=== PATIENT | male | born 1950 | race Caucasian/White ===

== ENCOUNTER 2016-07-21 13:13 | Outpatient (CLI) | payer MEDICARE, BC | END 2016-07-21 13:14 | disposition home or self-care (01) | DX: I25.10 Atherosclerotic heart disease of native coronary artery without angina pectoris (principal); E78.5 Hyperlipidemia, unspecified; Z12.5 Encounter for screening for malignant neoplasm of prostate; G47.33 Obstructive sleep apnea (adult) (pediatric) | CPT/HCPCS: 36415; 80053; 80061; 85025; G0103 ==

== ENCOUNTER 2016-08-12 08:15 | Outpatient (CLI) | payer MEDICARE, BC | END 2016-08-12 08:16 | disposition home or self-care (01) | DX: R94.5 Abnormal results of liver function studies (principal) ==

== ENCOUNTER 2016-08-24 07:31 | Outpatient (CLI) | payer MEDICARE, BC | END 2016-08-24 07:32 | disposition home or self-care (01) | DX: R94.5 Abnormal results of liver function studies (principal); Z79.899 Other long term (current) drug therapy ==

== ENCOUNTER 2016-10-28 08:44 | Outpatient (CLI) | payer MEDICARE, OTHER | END 2016-10-28 08:45 | disposition home or self-care (01) | LOC: SC 08:44 | PROVIDERS: ATTEND Nurse Practitioner Family | DX: G47.33 Obstructive sleep apnea (adult) (pediatric) (principal) | CPT/HCPCS: 99214; G0463; 99212 ==

== ENCOUNTER 2017-01-04 08:00 | Outpatient (CLI) | payer MEDICARE, OTHER ==
[2017-01-04 13:38] LABS: HEMOGLOBIN A1C 0.61 g/dL
[2017-01-04 13:40] LABS: ALBUMIN/GLOBULIN RATIO 1.6 (1.0-2.2); BILIRUBIN,TOTAL 1.1 mg/dL (0.2-1.0); BUN - BLOOD UREA NITROGEN 23 mg/dL (6-20); CALCIUM 9.6 mg/dL (8.5-10.3); CARBON DIOXIDE - CO2 29 mmol/L (21-32); CHLORIDE 100 mmol/L (101-111); CHOL/HDL RATIO 3.1 (<5.0); CHOLESTEROL 146 mg/dL; CREATININE 1.1 mg/dL (0.6-1.2); GFR - MDRD 67 (>89); GLUCOSE 120 mg/dL (70-100); HDL CHOLESTEROL 47 mg/dL; LDL/HDL RATIO 1.7 (<3.6); POTASSIUM 4.2 mmol/L (3.5-5.0); SODIUM 138 mmol/L (135-145); TOTAL PROTEIN 7.8 g/dL (6.7-8.2); TRIGLYCERIDES 85 mg/dL; VLDL CHOLESTEROL 17 mg/dL
== END 2017-01-04 08:01 | disposition home or self-care (01) ==
LOC: LAB.WCP 08:00
PROVIDERS: ATTEND Family Medicine
DX: R94.5 Abnormal results of liver function studies (principal); Z79.899 Other long term (current) drug therapy; E78.5 Hyperlipidemia, unspecified; I25.10 Atherosclerotic heart disease of native coronary artery without angina pectoris
CPT/HCPCS: 36415; 80053; 80061; 83036; 84443

== ENCOUNTER 2017-01-13 10:05 | Outpatient (CLI) | payer MEDICARE, OTHER | END 2017-01-13 10:06 | disposition home or self-care (01) | LOC: DI 10:05 | PROVIDERS: ATTEND Internal Medicine Cardiovascular Disease | DX: I25.10 Atherosclerotic heart disease of native coronary artery without angina pectoris (principal); Z95.1 Presence of aortocoronary bypass graft; I25.2 Old myocardial infarction | CPT/HCPCS: 93306 ==

== ENCOUNTER 2017-01-27 09:37 | Outpatient (CLI) | payer MEDICARE, OTHER ==
--- NOTE | 2017-01-27 14:31 | CARDIAC PROCEDURE NOTE ---
DATE OF SERVICE: 01/27/2017 00:00:00 PRIMARY CARE PHYSICIAN: Feng Blanco MD CUSTOMER RELATIONS ADVISOR: Praveen Chapin MD PROCEDURE: Treadmill myocardial perfusion scan. PROCEDURE SYMPTOMS: No symptoms. CARDIAC RISK FACTORS: Include known CAD, age and hyperlipidemia. PREVIOUS CARDIAC PROCEDURES: Include CABG in 2007. CLINICAL HISTORY: A 66-year-old male with known coronary artery disease. INITIAL RESTING VITAL SIGNS: Blood pressure 110/82, heart rate 64, height 70 inches, weight 182 pounds, BMI 26.1. PROCEDURE AND FINDINGS: The patient's identity and date verified. Consent signed. Safety stop. The patient performed treadmill exercise using a [place] protocol completing 10 minutes 36 seconds and completing an estimated workload of 12.9 metabolic equivalents. Maximal blood pressure was 198/90 with a heart rate of 170 beats per minute or 110% of maximum predicted heart rate for age. The blood pressure response to exercise was within normal limits. At heart rate greater than 140, Cardiolite was injected, and the patient exercised more than 60 seconds more. The resting ECG demonstrated normal sinus rhythm with right bundle branch abnormality. Maximum ST segment depression was less than 0.5 mm and upsloping. There was a rare PVC. The patient had good 1 minute heart rate recovery. FINAL IMPRESSION 1. Negative stress electrocardiogram for ischemia by electrocardiographic criteria. 2. Negative stress test clinically for angina. 3. Rare premature ventricular contraction. 4. [place] Heart Association functional class I. 5. Await myocardial perfusion scan results. JOB #: [id number] [facility] JOB #:[id number] [facility]
[2017-01-27 16:25] VITALS: BP 110/82
--- NOTE | 2017-01-27 17:18 | Nuclear Medicine Report ---
EXAM: MYOCARDIAL PERFUSION STRESS AND REST EXAM DATE: 01/27/2017 10:36 AM. CLINICAL HISTORY: Coronary artery disease. Evaluate for ischemia. COMPARISON: None. TECHNIQUE: Patient given 10.4 mCi technetium 99m sestamibi IV for the rest portion of the study. Non- gated cardiac SPECT scintigraphy performed with multiplanar reformats. Next, patient exercised on a treadmill protocol for 10 minutes 36 seconds. Near peak exercise, patien t given 38.4 mCi technetium 99m sestamibi IV. Cardiac gated SPECT scintigraphy performed with multipl vincent reformats, wall motion analysis, and left ventricular ejection fraction estimation. FINDINGS: There is minimal decreased activity in the apex on both stress and rest, likely apical thinning. No other focus of fixed or reversible perfusion defects are seen. Wall motion appears uniform. Left ventricular ejection fraction estimated at 64%. IMPRESSION: 1. No significant evidence of inducible ischemia or infarct. 2. Left ventricular ejection fraction estimated at 64%. [facility] Referring Provider Line: [phone] SITE ID: [id number]
== END 2017-01-27 09:38 | disposition home or self-care (01) ==
LOC: DI 09:37
PROVIDERS: ATTEND Internal Medicine Cardiovascular Disease
DX: I25.10 Atherosclerotic heart disease of native coronary artery without angina pectoris (principal); I49.3 Ventricular premature depolarization; E78.5 Hyperlipidemia, unspecified; Z95.1 Presence of aortocoronary bypass graft
CPT/HCPCS: 78452; 93017; A9500

== ENCOUNTER 2017-10-27 08:53 | Outpatient (CLI) | payer MEDICARE, OTHER | END 2017-10-27 08:54 | disposition home or self-care (01) | LOC: SC 08:53 | PROVIDERS: ATTEND Nurse Practitioner Family | DX: G47.33 Obstructive sleep apnea (adult) (pediatric) (principal) | CPT/HCPCS: 99213; G0463; 99212 ==

== ENCOUNTER 2018-05-15 08:00 | Outpatient (CLI) | payer MEDICARE, OTHER ==
[2018-05-15 19:12] LABS: BASOPHILS % (AUTO) 0.3 %; EOSINOPHILS # (AUTO) 0.1 10^3/uL (0.0-0.7); EOSINOPHILS % (AUTO) 0.9 %; HGB - HEMOGLOBIN 16.1 g/dL (14.0-18.0); LYMPHOCYTES # (AUTO) 1.6 10^3/uL (1.5-3.5); LYMPHOCYTES % (AUTO) 28.1 %; MEAN CORPUSCULAR HEMOGLOBIN 33.4 pg (27.0-31.0); MEAN CORPUSCULAR HGB CONC 33.7 g/dL (32.0-36.0); MEAN CORPUSCULAR VOLUME 99.1 fL (80.0-94.0); MEAN PLATELET VOLUME 8.1 fL (7.4-11.4); MONOCYTES # (AUTO) 0.4 10^3/uL (0.0-1.0); MONOCYTES % (AUTO) 7.9 %; NEUTROPHILS # (AUTO) 3.5 10^3/uL (1.5-6.6); NEUTROPHILS % (AUTO) 62.8 %; PLT - PLATELET COUNT 185 10^3/uL (130-450); RED BLOOD COUNT 4.82 10^6/uL (4.70-6.10); WHITE BLOOD COUNT 5.6 x10^3/uL (4.8-10.8)
[2018-05-15 19:54] LABS: ALBUMIN 4.8 g/dL (3.2-5.5); ALBUMIN/GLOBULIN RATIO 1.6 (1.0-2.2); ALKALINE PHOSPHATASE 55 IU/L (42-121); ALT ALANINE AMINOTRANSFERASE 34 IU/L (10-60); AST ASPARTATE AMINOTRANSFERASE 28 IU/L (10-42); BUN - BLOOD UREA NITROGEN 24 mg/dL (6-20); CALCIUM 9.4 mg/dL (8.5-10.3); CARBON DIOXIDE - CO2 29 mmol/L (21-32); CHLORIDE 99 mmol/L (101-111); CHOL/HDL RATIO 3.3 (<5.0); CHOLESTEROL 163 mg/dL; GFR - MDRD 75 (>89); GLUCOSE 100 mg/dL (70-100); HDL CHOLESTEROL 49 mg/dL; LDL CHOLESTEROL,CALCULATED 94 mg/dL; LDL/HDL RATIO 1.9 (<3.6); SODIUM 135 mmol/L (135-145); TOTAL PROTEIN 7.8 g/dL (6.7-8.2); VLDL CHOLESTEROL 20 mg/dL
== END 2018-05-15 23:59 | disposition home or self-care (01) ==
LOC: LAB.WCP 08:00
PROVIDERS: ATTEND Family Medicine
DX: Z79.899 Other long term (current) drug therapy (principal); R73.01 Impaired fasting glucose; E78.5 Hyperlipidemia, unspecified
CPT/HCPCS: 36415; 80053; 80061; 83721; 84443; 85025

== ENCOUNTER 2018-10-05 08:17 | Outpatient (CLI) | payer MEDICARE, OTHER | END 2018-10-05 08:18 | disposition home or self-care (01) | LOC: SC 08:17 | PROVIDERS: ATTEND Nurse Practitioner Family | DX: G47.33 Obstructive sleep apnea (adult) (pediatric) (principal) | CPT/HCPCS: 99214; G0463; 99212 ==

== ENCOUNTER 2019-01-05 08:00 | Outpatient (CLI) | payer MEDICARE, OTHER ==
[2019-01-05 19:15] LABS: BASOPHILS % (AUTO) 0.3 %; EOSINOPHILS % (AUTO) 0.7 %; HGB - HEMOGLOBIN 15.5 g/dL (14.0-18.0); LYMPHOCYTES # (AUTO) 1.3 10^3/uL (1.5-3.5); LYMPHOCYTES % (AUTO) 22.1 %; MEAN CORPUSCULAR HEMOGLOBIN 33.3 pg (27.0-31.0); MEAN CORPUSCULAR HGB CONC 33.8 g/dL (32.0-36.0); MEAN CORPUSCULAR VOLUME 98.7 fL (80.0-94.0); MEAN PLATELET VOLUME 9.7 fL (7.4-11.4); MONOCYTES # (AUTO) 0.4 10^3/uL (0.0-1.0); MONOCYTES % (AUTO) 7.2 %; NEUTROPHILS # (AUTO) 4.1 10^3/uL (1.5-6.6); NEUTROPHILS % (AUTO) 69.2 %; PLT - PLATELET COUNT 195 10^3/uL (130-450); RED BLOOD COUNT 4.65 10^6/uL (4.70-6.10); RED CELL DISTRIBUTION WIDTH 12.5 % (12.0-15.0)
[2019-01-05 19:51] LABS: ALBUMIN 4.7 g/dL (3.2-5.5); ALBUMIN/GLOBULIN RATIO 1.7 (1.0-2.2); ALKALINE PHOSPHATASE 54 IU/L (42-121); ALT ALANINE AMINOTRANSFERASE 39 IU/L (10-60); AST ASPARTATE AMINOTRANSFERASE 36 IU/L (10-42); BILIRUBIN,TOTAL 1.3 mg/dL (0.2-1.0); BUN - BLOOD UREA NITROGEN 22 mg/dL (6-20); CHOL/HDL RATIO 2.9 (<5.0); CHOLESTEROL 135 mg/dL; CREATININE 1.1 mg/dL (0.6-1.2); GFR - MDRD 67 (>89); HDL CHOLESTEROL 46 mg/dL; LDL CHOLESTEROL,CALCULATED 71 mg/dL; LDL/HDL RATIO 1.5 (<3.6); TOTAL PROTEIN 7.5 g/dL (6.7-8.2); VLDL CHOLESTEROL 18 mg/dL
[2019-01-05 19:55] LABS: CALCIUM 9.5 mg/dL (8.5-10.3); CARBON DIOXIDE - CO2 27 mmol/L (21-32); CHLORIDE 103 mmol/L (101-111); GLUCOSE 117 mg/dL (70-100); SODIUM 140 mmol/L (135-145)
== END 2019-01-05 23:59 ==
LOC: LAB.WCP 08:00
PROVIDERS: ATTEND Family Medicine
DX: R73.01 Impaired fasting glucose (principal); Z79.899 Other long term (current) drug therapy
CPT/HCPCS: 36415; 80053; 80061; 83721; 84443; 85025

== ENCOUNTER 2019-11-15 15:19 | Outpatient (CLI) | payer MEDICARE, OTHER ==
--- NOTE | 2019-11-15 15:59 | SLEEP CARE CONSULTATION ---
Information from patient questionnaire entered by Caro Calderón. I have reviewed and concur with the information entered by Caro Calderón. This document represents the service I personally performed and the decisions made by me, Mirela Mcnally, RN, MSN, GENERAL MATCHER. History of Present Illness Service Date and Time: 11/15/2019 1519 Previous diagnosis: Very Severe, Obstructive Sleep Apnea-Hypopnea Syndrome, Central Sleep Apnea-Hypopnea Syndrome AHI: 71.3 (in 2008) Reason for follow up: annual (last seen 2019) Equipment type: CPAP Equipment obtained from: [employer] (getting supplies as needed) Mask style: Nasal pillows Backup mask available: Yes (old) Last cushion change: 1 month ago Prior sleep studies: Yes Year and Where: 2008 - [facility] in [place], [place] CPAP Compliance Data - Data Reviewed with Patient Average duration of nightly device use: 6 Compliance rate %: 100 (180 days) Current pressure setting (cmH2O): 11 Humidity settin Heated hose settin Average residual AHI: 1.2 Average large leak: 1 min 39 sec Subjective Patient concerns: denies: aerophagia, mask discomfort, air blowing in eyes, mask leak noise, condensation in mask/hose, nasal congestion, dry mouth, nose, throat, epistaxis, other Observed to snore while using device: No Current pressure setting perceived as: comfortable On therapy, patient: reports: sleeping better, awakening more refreshed, being more awake and alert during the day, more rested overall. denies: drowsiness while driving Initial [place] Sleepiness Scale score: 2 (in 2016) Current [place] Sleepiness Scale score: 1 Allergies and Home Medications Known drug allergies: No Home medication list reviewed: No (no changes ) Review of Systems Review of systems same as previous: Yes Physical Exam Blood Pressure: 140/80 Cuff size: long Heart Rate: 84 O2 Saturation: 98 Height: 5 ft 10 in Weight: 198 lb 9.6 oz Body Mass Index: 28.5 BMI Classification: Overweight Impression and Plan 1. Obstructive Sleep Apnea-Hypopnea Syndrome, severe, with good treatment compliance and good apnea control. On CPAP therapy, the patient has better sleep quality and is more rested overall. He has gained 10 pounds weight with different cooking since Covid 19 virus pandemic. He is now overweight. Currently patients BMI is 28 obesity class . I counseled patient how obesity increases the risk of apnea, CPAP pressure requirements and overall health risks especially cardiovascular and diabetes. Thus patient is advised to lose weight. Patient states aware how to modify diet. The BMI chart was reviewed. If unable to meet his weight loss goals, patient consider a referral to a livestock sales representative with referral from his PCP. The patient's CPAP pressure range should accommodate some weight loss. Symptoms to report for additional pressure adjustment discussed. His prescription is outdated so I will make DWO to update supplies. Patient's apnea severity and rationale for treatment to reduce apnea, improve sleep quality and reduce cardiovascular and cerebrovascular events was reviewed. * Continue CPAP pressure at 11 cmH2O * Update CPAP supplies * Notify me if snoring with mask or feeling that the pressure is too much or too little * Attempt to lose weight * Call this office if any problems using CPAP * Return for follow up in 1 year , or sooner if concerns arise Visit Type: In Office Time Spent with Patient (minutes): 20 Provider Statement: I spent 100% of the Face to Face Visit with the patient with greater than 50% spent counseling the patient and coordination of care.
[2019-11-15 16:00] VITALS: BP 140/80
== END 2019-11-15 15:20 | disposition home or self-care (01) ==
LOC: SC 15:19
PROVIDERS: ATTEND Nurse Practitioner Family
DX: G47.33 Obstructive sleep apnea (adult) (pediatric) (principal); E66.3 Overweight; Z68.28 Body mass index [BMI] 28.0-28.9, adult
CPT/HCPCS: 99213; G0463; 99212

== ENCOUNTER 2020-11-20 08:47 | Outpatient (CLI) | payer MEDICARE, OTHER ==
[2020-11-20 09:12] VITALS: BP 137/82
--- NOTE | 2020-11-20 09:12 | SLEEP CARE CONSULTATION ---
Information from patient questionnaire entered by Caro Calderón. I have reviewed and concur with the information entered by Caro Calderón. This document represents the service I personally performed and the decisions made by , Holly Johnson ARNP. History of Present Illness Service Date and Time: 11/20/2020 0847 Previous diagnosis: Very Severe, Obstructive Sleep Apnea-Hypopnea Syndrome, Central Sleep Apnea-Hypopnea Syndrome AHI: 71.3 (in 2008) Reason for follow up: annual (last seen 11/2019) Equipment type: CPAP Equipment obtained from: [employer] (getting supplies as needed) Mask style: Nasal pillows Backup mask available: Yes (old mask) Last cushion change: 4 days ago Prior sleep studies: Yes Year and Where: 2008 - [facility] additional information: ELIUD CONROY was diagnosed to have very severe, AHI 71.3, obstructive sleep apnea-hypopnea syndrome and returned today for CPAP therapy annual follow-up. CPAP Compliance Data - Data Reviewed with Patient Average duration of nightly device use: 6 hr 8 min Compliance rate %: 98.3 (180 days) Current pressure setting (cmH2O): 11 Humidity settin Heated hose settin Average residual AHI: 1.0 Average large leak: 32 sec Subjective Patient concerns: denies: aerophagia, mask discomfort, air blowing in eyes, mask leak noise, condensation in mask/hose, nasal congestion, dry mouth, nose, throat, epistaxis, other Observed to snore while using device: No Current pressure setting perceived as: comfortable On therapy, patient: reports: sleeping better, awakening more refreshed, being more awake and alert during the day, more rested overall. denies: drowsiness while driving Initial [place] Sleepiness Scale score: 2 (in 2016) Current [place] Sleepiness Scale score: 3 Allergies and Home Medications Home medication list reviewed: Yes (no changes) Review of Systems Review of systems same as previous: Yes (no changes) Physical Exam Blood Pressure: 137/82 Cuff size: wrist Heart Rate: 68 O2 Saturation: 98 Height: 5 ft 10 in Weight: 199 lb Body Mass Index: 28.5 BMI Classification: Overweight Impression and Plan 1. Obstructive/Central Sleep Apnea-Hypopnea Syndrome, very severe, with good treatment compliance and good apnea control. On CPAP therapy, the patient has better sleep quality and is more rested overall. He states he uses his CPAP religiously and is very satisfied with treatment. He has put on a little more weight since Covid due to eating more carbs and being less active. He is planning on trying to lose extra weight with cutting out carbs and increasing activity. He has no concerns or issues with CPAP/mask use. I discussed with him that he is eligible to upgrade his machine but he does not want to do it at this time. Patient's apnea severity and rationale for treatment to reduce apnea, improve sleep quality and reduce cardiovascular and cerebrovascular events was reviewed. I also reviewed the benefit of consistent device use of CPAP for cardiac disease. * Continue auto CPAP pressure at 11 cmH2O * Notify me if snoring with mask or feeling that the pressure is too much or too little * Attempt to lose weight * Call this office if any problems using CPAP * Return for follow up in 1 year, or sooner if concerns arise Counseling Topics: Spare mask, Weight loss health impact Visit Type: In Office Time Spent with Patient (minutes): 14 Provider Statement: I spent 100% of the Face to Face Visit with the patient with greater than 50% spent counseling the patient and coordination of care.
== END 2020-11-20 08:48 | disposition home or self-care (01) ==
LOC: SC 08:47
PROVIDERS: ATTEND Nurse Practitioner Family
DX: G47.33 Obstructive sleep apnea (adult) (pediatric) (principal); E66.3 Overweight; Z68.28 Body mass index [BMI] 28.0-28.9, adult
CPT/HCPCS: 99212; G0463

== ENCOUNTER 2020-12-12 08:00 | Outpatient (CLI) | payer MEDICARE, OTHER ==
[2020-12-12 12:42] LABS: BASOPHILS % (AUTO) 0.4 %; EOSINOPHILS % (AUTO) 0.7 %; HCT - HEMATOCRIT 43.8 % (42.0-52.0); HGB - HEMOGLOBIN 15.5 g/dL (14.0-18.0); LYMPHOCYTES # (AUTO) 1.2 10^3/uL (1.5-3.5); LYMPHOCYTES % (AUTO) 26.6 %; MEAN CORPUSCULAR HEMOGLOBIN 34.5 pg (27.0-31.0); MEAN CORPUSCULAR HGB CONC 35.4 g/dL (32.0-36.0); MEAN CORPUSCULAR VOLUME 97.6 fL (80.0-94.0); MONOCYTES # (AUTO) 0.4 10^3/uL (0.0-1.0); MONOCYTES % (AUTO) 9.8 %; NEUTROPHILS # (AUTO) 2.8 10^3/uL (1.5-6.6); NEUTROPHILS % (AUTO) 62.3 %; PLT - PLATELET COUNT 194 10^3/uL (130-450); RED BLOOD COUNT 4.49 10^6/uL (4.70-6.10); RED CELL DISTRIBUTION WIDTH 12.2 % (12.0-15.0); WHITE BLOOD COUNT 4.5 x10^3/uL (4.8-10.8)
[2020-12-12 13:11] LABS: ESTIMATED AVERAGE GLUCOSE 111 mg/dL (70-100); HEMOGLOBIN A1c% 5.5 % (4.27-6.07)
[2020-12-12 13:12] LABS: THYROID STIMULATING HORMONE 3.1 uIU/mL (0.34-5.60)
[2020-12-12 13:24] LABS: ALBUMIN 4.9 g/dL (3.2-5.5); ALBUMIN/GLOBULIN RATIO 1.7 (1.0-2.2); ALKALINE PHOSPHATASE 54 IU/L (42-121); ALT ALANINE AMINOTRANSFERASE 38 IU/L (10-60); AST ASPARTATE AMINOTRANSFERASE 38 IU/L (10-42); BILIRUBIN,TOTAL 0.9 mg/dL (0.2-1.0); BUN - BLOOD UREA NITROGEN 26 mg/dL (6-20); CALCIUM 9.4 mg/dL (8.5-10.3); CARBON DIOXIDE - CO2 28 mmol/L (21-32); CHLORIDE 100 mmol/L (101-111); CHOL/HDL RATIO 2.6 (<5.0); CHOLESTEROL 128 mg/dL; CREATININE 1.1 mg/dL (0.6-1.2); CREATININE,URINE 266.4 mg/dL; GFR - MDRD 66 (>89); GLUCOSE 124 mg/dL (70-100); HDL CHOLESTEROL 49 mg/dL; LDL CHOLESTEROL,CALCULATED 70 mg/dL; LDL/HDL RATIO 1.4 (<3.6); MICROALBUM/CREATININE RATIO,UR 11.3 ug/mg (<30.0); POTASSIUM 4.3 mmol/L (3.5-5.0); SODIUM 137 mmol/L (135-145); TOTAL PROTEIN 7.8 g/dL (6.7-8.2); TRIGLYCERIDES 46 mg/dL; VLDL CHOLESTEROL 9 mg/dL
== END 2020-12-12 23:59 | disposition home or self-care (01) ==
LOC: LAB.WCP 08:00
PROVIDERS: ATTEND Internal Medicine
DX: I10 Essential (primary) hypertension (principal); R94.5 Abnormal results of liver function studies; Z79.899 Other long term (current) drug therapy; E78.5 Hyperlipidemia, unspecified; R73.01 Impaired fasting glucose; Z12.5 Encounter for screening for malignant neoplasm of prostate; N40.1 Benign prostatic hyperplasia with lower urinary tract symptoms; I25.10 Atherosclerotic heart disease of native coronary artery without angina pectoris; N13.8 Other obstructive and reflux uropathy
CPT/HCPCS: 36415; 80053; 80061; 82043; 82570; 83036; 84443; 85025; G0103; 83721; 84153

== ENCOUNTER 2021-03-18 13:24 | Outpatient (CLI) | payer MEDICARE, OTHER ==
[2021-03-18 18:33] LABS: BUN - BLOOD UREA NITROGEN 24 mg/dL (6-20); CALCIUM 9.5 mg/dL (8.5-10.3); CARBON DIOXIDE - CO2 27 mmol/L (21-32); CHLORIDE 99 mmol/L (101-111); CHOL/HDL RATIO 2.8 (<5.0); CHOLESTEROL 132 mg/dL; CREATININE 1.1 mg/dL (0.6-1.2); GFR - MDRD 66 (>89); GLUCOSE 109 mg/dL (70-100); HDL CHOLESTEROL 47 mg/dL; LDL CHOLESTEROL,CALCULATED 71 mg/dL; LDL/HDL RATIO 1.5 (<3.6); POTASSIUM 4.2 mmol/L (3.5-5.0); SODIUM 136 mmol/L (135-145); TRIGLYCERIDES 70 mg/dL; VLDL CHOLESTEROL 14 mg/dL
[2021-03-18 20:34] LABS: ESTIMATED AVERAGE GLUCOSE 114 mg/dL (70-100); HEMOGLOBIN A1c% 5.6 % (4.27-6.07)
== END 2021-03-18 23:59 | disposition home or self-care (01) ==
LOC: LAB.WCP 13:24
PROVIDERS: ATTEND Internal Medicine
DX: I25.10 Atherosclerotic heart disease of native coronary artery without angina pectoris (principal); R73.01 Impaired fasting glucose
CPT/HCPCS: 36415; 80048; 80061; 83036; 83721

== ENCOUNTER 2021-11-17 10:44 | Outpatient (CLI) | payer MEDICARE, OTHER ==
--- NOTE | 2021-11-17 10:23 | SLEEP CARE CONSULTATION ---
Information from patient questionnaire entered by Terry Velazquez MA. I have reviewed and concur with the information entered by Terry Velazquez MA. This document represents the service I personally performed and the decisions made by , Holly Johnson ARNP. History of Present Illness Service Date and Time: 11/17/2021 1020 Previous diagnosis: Very Severe, Obstructive Sleep Apnea-Hypopnea Syndrome, Central Sleep Apnea-Hypopnea Syndrome AHI: 71.3 (in 2008) Reason for follow up: annual (LAST SEEN 11/2020, YUNIORSUSANNA 08/05/2015, ) Accompanied by: Spouse Equipment type: CPAP Equipment obtained from: [employer] (getting supplies as needed) Mask style: Nasal pillows Backup mask available: Yes (old mask) Last cushion change: 1 week Prior sleep studies: Yes Year and Where: 2008 - [facility] in [place], [place] HPI additional information: ELIUD CONROY was diagnosed to have very severe, AHI 71.3, obstructive/central sleep apnea-hypopnea syndrome and returns via video telehealth visit today for CPAP therapy annual follow-up. Sleep Study - Results Prior sleep studies: Yes Year and Where: 2008 - [facility] in [place], [place] CPAP Compliance Data - Data Reviewed with Patient Average duration of nightly device use: 6 hours 18 minutes Compliance rate %: 100 (05/20/2021-11/15/2021) Current pressure setting (cmH2O): 11 Humidity settin Heated hose settin Average residual AHI: 1.0 Average large leak: 15 seconds Subjective Patient concerns: denies: aerophagia, mask discomfort, air blowing in eyes, mask leak noise, condensation in mask/hose, nasal congestion, dry mouth, nose, throat, epistaxis, other Observed to snore while using device: No Current pressure setting perceived as: comfortable On therapy, patient: reports: sleeping better, awakening more refreshed, being more awake and alert during the day, more rested overall. denies: drowsiness while driving Initial [place] Sleepiness Scale score: 2 (in 2015) Current [place] Sleepiness Scale score: 4 Allergies and Home Medications Home medication list reviewed: Yes (no changes) Allergy and home medication list: Allergies No Known Drug Allergies Allergy (Verified 07/09/14 10:14) Review of Systems Review of systems same as previous: Yes (no changes) Physical Exam Vital signs obtained and entered by: Trent VELAZQUEZ CMA AADAVID Height: 5 ft 10 in Weight: 185 lb Body Mass Index: 26.5 BMI Classification: Overweight Impression and Plan 1. Obstructive and Central Sleep Apnea-Hypopnea Syndrome, very severe, with excellent treatment compliance and good apnea control. On CPAP therapy, the patient has better sleep quality and is more rested overall. Patient has a Dreamstation that was last updated 08/2015. He has registered his machine with [employer]. He has not noted any black particles in his device or had any physical symptoms when using the machine. The patients CPAP is over 5 years old and of reasonable use. Thus, the CPAP will be updated. A DWO prescription will be made. Compliance guidelines for new device and follow up discussed. Rhonda may would like to get a [employer]Med Airsense device if he cannot get a new Dreamstation 2 but his current DME is 3-4 months out to fill these orders. He would like to change to a DME that can get him his machine sooner. I will have my home care coordinator inform of DME options. A DWO prescription will then be made. Patient advised to contact this office if further supply problems. Patient's apnea severity and rationale for treatment to reduce apnea, improve sleep quality and reduce cardiovascular and cerebrovascular events was reviewed. I also reviewed the benefit of consistent device use of CPAP for cardiac disease. * Continue CPAP pressure at 11 cmH2O * Transfer DME * Update device * Update supplies as needed * Notify me if snoring with mask or feeling that the pressure is too much or too little * Call this office if any problems using CPAP * Return for follow one month after obtains new device, or sooner if concerns arise Counseling Topics: Spare mask Visit Type: Telehealth Video ([phone],) Video Type: Doximity Patient Location: Home Location of Provider: Office Patient agrees and consents to this telehealth visit type: Yes Patient agrees to have their insurance billed: Yes Time Spent with Patient (minutes): 24 Provider Statement: I spent 100% of the Telehealth Video Call with the patient with greater than 50% spent counseling the patient and coordination of care.
== END 2021-11-17 10:45 | disposition home or self-care (01) ==
LOC: SC 10:44
PROVIDERS: ATTEND Nurse Practitioner Family
DX: G47.31 Primary central sleep apnea (principal); G47.33 Obstructive sleep apnea (adult) (pediatric); E66.3 Overweight; Z68.26 Body mass index [BMI] 26.0-26.9, adult

== ENCOUNTER 2022-09-08 13:29 | Outpatient (CLI) | payer MEDICARE, OTHER ==
[2022-09-08 09:34] VITALS: BP 125/70
--- NOTE | 2022-09-08 09:34 | SLEEP CARE CONSULTATION ---
Information from patient questionnaire entered by Goldie Serrano. I have reviewed and concur with the information entered by Goldie Serrano. This document represents the service I personally performed and the decisions made by , Holly Johnson ARNP. History of Present Illness Service Date and Time: 09/08/2022919 Previous diagnosis: Very Severe, Obstructive Sleep Apnea-Hypopnea Syndrome, Central Sleep Apnea-Hypopnea Syndrome AHI: 71.3 (in 2008) Reason for follow up: other (10 MONTH F/U) Equipment type: CPAP (RESMED Airsense 10) Equipment obtained from: Other ([facility] [employer] [place]) Mask style: Nasal Mask brand: Respironics Backup mask available: Yes (old mask) Prior sleep studies: Yes Year and Where: 2008 - [facility] in [place], [place] HPI additional information: ELIUD CONROY was diagnosed to have very severe, AHI 71.3, obstructive and central sleep apnea-hypopnea syndrome and returns via telehealth visit today for CPAP therapy annual follow-up. Sleep Study - Results Prior sleep studies: Yes Year and Where: 2008 - [facility] in [place], [place] CPAP Compliance Data - Data Reviewed with Patient Average duration of nightly device use: 7 hours 12 minutes Compliance rate %: 100 (06/09/22-09/06/22; 90/90 days used) Current pressure setting (cmH2O): 11 Average residual AHI: 0.8 Central apnea: 0.5 Obstructive apnea: 0.2 Average large leak: 0.8 lpm Subjective Patient concerns: denies: aerophagia, mask discomfort, air blowing in eyes, mask leak noise, condensation in mask/hose, nasal congestion, dry mouth, nose, throat, epistaxis Observed to snore while using device: No Current pressure setting perceived as: comfortable On therapy, patient: reports: sleeping better, awakening more refreshed, being more awake and alert during the day, more rested overall. denies: drowsiness while driving Initial [place] Sleepiness Scale score: 2 (in 2015) Current [place] Sleepiness Scale score: 0 (09/08/22) Allergies and Home Medications Known drug allergies: No Drug allergies reviewed: Yes Home medication list reviewed: Yes (no changes) Allergy and home medication list: Allergies No Known Drug Allergies Allergy (Verified 09/07/22 13:39) Review of Systems Review of systems same as previous: Yes (no changes) Physical Exam Vital signs obtained and entered by: GOLDIE Henry MA Blood Pressure: 125/70 (PER PT) Height: 5 ft 10 in (PER PT) Weight: 190 lb (PER PT) Body Mass Index: 27.2 BMI Classification: Overweight Impression and Plan 1. Obstructive and Central Sleep Apnea-Hypopnea Syndrome, very severe, with good treatment compliance and good apnea control. On CPAP therapy, the patient has better sleep quality and is more rested overall. He is trying to set up for supplies in [place] and the DME company needs a prescription from us to get him set up. For patient supply concerns, a DWO prescription will then be made. Patient advised to contact this office if further supply problems. He knows he will need to set up follow up with sleep provider in his new area for next year. Patient's apnea severity and rationale for treatment to reduce apnea, improve sleep quality and reduce cardiovascular and cerebrovascular events was reviewed. I also reviewed the benefit of consistent device use of CPAP for cardiac disease. 2. Overweight, unspecified. Currently patients BMI is 27.2. Obesity increases the risk of apnea, CPAP pressure requirements and overall health risks especially cardiovascular and diabetes. Thus patient is advised to lose weight. * Continue CPAP pressure at 11 cmH2O * Transfer DME to [place] supplier * Update supplies * Notify me if snoring with mask or feeling that the pressure is too much or too little * Attempt to lose weight * Call this office if any problems using CPAP * Return for follow up in 1 year, or sooner if concerns arise Counseling Topics: Spare mask, Weight loss health impact Visit Type: Telehealth Phone Video Type: Doximity Patient Location: Home Location of Provider: Office Patient agrees and consents to this telehealth visit type: Yes Patient agrees to have their insurance billed: Yes Time Spent with Patient (minutes): 20 Provider Statement: I spent 100% of the Telehealth Phone Call with the patient with greater than 50% spent counseling the patient and coordination of care.
== END 2022-09-08 13:30 | disposition home or self-care (01) ==
LOC: SC 13:29
PROVIDERS: ATTEND Nurse Practitioner Family
DX: G47.33 Obstructive sleep apnea (adult) (pediatric) (principal); E66.3 Overweight; Z68.27 Body mass index [BMI] 27.0-27.9, adult